=== PATIENT | male | born 1980 ===

== ENCOUNTER 2017-09-19 07:30 | Inpatient (IN) | payer OTHER ==
[~2017-09-19] VITALS: Ht 167.6 cm; Wt 83.9 kg
[2017-12-03] MEDS ORDERED: NKM (13:53)
[2017-12-04] VITALS (20 sets, daily range): BP systolic 11–125; BP diastolic 40–76
[2017-12-04] MEDS ORDERED: Zemuron 50mg/5ml Inj IV ONE (06:26)
[2017-12-04] MEDS ORDERED: LR 1000ml 1,000 ML IVLG SCH (06:47)
--- NOTE | 2017-12-04 06:49 | Anethesia Preoperative Eval ---
Anesthesia Pre-op PMH/ROS General Date of Evaluation: Dec 04, 2017 Time of Evaluation: 07:26 Anesthesiologist: Camila ASA Score: ASA 2 Mallampati Score Class I : Soft palate, uvula, fauces, pillars visible Class II: Soft palate, uvula, fauces visible Class III: Soft palate, base of uvula visible Class IV: Only hard plate visible Mallampati Classification: Class I Surgeon: Alexandru Diagnosis: Back Pain Surgical Procedure: PLF L5-S1 Anesthesia History: none Social History: current smoker Family History: no anesthesia problems Allergies: Coded Allergies: No Known Allergies (Unverified , 12/03/17) Medications: see eMAR Past Medical History Other: obesity - BMI 31 PSxH Narrative: R Pelvic, L Shoulder SX Anesthesia Pre-op Phys. Exam Physician Exam Last Vital Signs Date Time Temp Pulse Resp B/P (MAP) Pulse Ox O2 Delivery O2 Flow Rate FiO2 12/04/17 05:45 Room Air 12/04/17 05:42 97.8 62 18 120/76 (91) 97 97.8 Constitutional: NAD Neurologic: CN 2-12 intact Cardiovascular: RRR Respiratory: CTA Gastrointestinal: S/NT/ND Airway Exam Mallampati Score: Class I MO: full ROM: full Teeth: intact Anesthesia Pre-op A/P Risk Assessment & Plan Assessment: ASA 2 Plan: GA, SED, GlideScope Status Change Before Surgery: No Pre-Antibiotics Dru Grams Ancef IV Given Within 1 Hr of Incision: Yes Time Given: 07:46 Gonzalo Jensen MD Dec 04, 2017 06:49
[2017-12-04] MEDS ORDERED: Lidocaine 1% Plain 30 ml INJ ONE ×4 (06:57→11:03)
[2017-12-04] MEDS ORDERED: Dexamethasone 4mg/ml vial ONE (06:59)
[2017-12-04] MEDS ORDERED: Lidocaine 1% MPF 10mg/ml 5ml ONE (06:59)
[2017-12-04] MEDS ORDERED: Sodium Chloride 10ml vial INJ ONE (06:59)
[2017-12-04] MEDS ORDERED: fentaNYL 100 mcg/2 mL IV ONE ×5 (06:59→11:59)
[2017-12-04] MEDS ORDERED: Labetalol 5mg/ml 20ml vial IV PRN (07:00)
[2017-12-04] MEDS ORDERED: Ketorolac 30mg Inj IV PRN ×2 (07:00)
[2017-12-04] MEDS ORDERED: Meperidine 50mg/ml Inj(FOR RIGORS ONLY) IVP PRN (07:00)
[2017-12-04] MEDS ORDERED: Midazolam 2mg/2ml Inj IVP PRN (07:00)
[2017-12-04] MEDS ORDERED: Acetaminophen (Non formulary) 100 ML IV ONE (07:00)
[2017-12-04] MEDS ORDERED: Atropine Sulfate 0.4mg/ml inj IVP PRN (07:00)
[2017-12-04] MEDS ORDERED: HYDROcodone/Acetamin 7.5/325 tab ORAL PRN (07:00)
[2017-12-04] MEDS ORDERED: Metoclopramide 10mg/2ml Inj IVP PRN (07:00)
[2017-12-04] MEDS ORDERED: Norco 5mg/325mg tab ORAL PRN (07:00)
[2017-12-04] MEDS ORDERED: oxyCODONE HCL/Acetaminophen 5/325mg ORAL PRN (07:00)
[2017-12-04] MEDS ORDERED: DiphenhydrAMINE 50mg/ml Inj IVP PRN (07:00)
[2017-12-04] MEDS ORDERED: fentaNYL 100 mcg/2 mL IV PRN (07:00)
[2017-12-04] MEDS ORDERED: Hydromorphone 0.5mg/0.5ml inj IVP PRN (07:00)
[2017-12-04] MEDS ORDERED: LORazepam Inj 2mg/ml 1ml IV PRN (07:00)
[2017-12-04] MEDS ORDERED: EPINEPHrine 1mg/1ml Amp ONE (07:07)
[2017-12-04] MEDS ORDERED: Bupivacaine 0.5% Inj 30 ml vial INJ ONE ×2 (07:08→07:29)
[2017-12-04] MEDS ORDERED: Gelfoam Size TOPIC ONE (07:08)
[2017-12-04] MEDS ORDERED: Thrombin 5000 units TOPIC ONE ×2 (07:08→07:09)
[2017-12-04] MEDS ORDERED: Gelfoam Absorbable 1gm powder pkt TOPIC ONE (07:08)
[2017-12-04] MEDS ORDERED: Bacitracin 50000 Units Vial ONE ×2 (07:08→10:17)
[2017-12-04] MEDS ORDERED: Thrombin 5000 units spray kit TOPIC ONE (07:09)
--- NOTE | 2017-12-04 07:13 | Immediate Post-Op Evaluation ---
Immediate Post-Op Evalulation Immediate Post-Op Evalulation Procedure: PLIF L5-S1 Date of Evaluation: Dec 04, 2017 IV Fluids: 1000 LR Blood Products: 0 Estimated Blood Loss: 75 Urinary Output: 300 Blood Pressure Systolic: 108 Blood Pressure Diastolic: 60 Pulse Rate: 90 Respiratory Rate: 16 O2 Sat by Pulse Oximetry: 99 Temperature (Fahrenheit): 98.4 Pain Score (1-10): 3 Nausea: No Vomiting: No Complications 0 Patient Status: awake, reacts, patent, extubated, none Hydration Status: adequate Dru Grams Ancef IV Given Within 1 Hr of Incision: Yes Time Given: 07:46 Gonzalo Jensen MD Dec 04, 2017 07:13
[2017-12-04] MEDS ORDERED: Sterile Water Irrig 1000ml IRRIG ONE (07:30)
[2017-12-04] MEDS ORDERED: Propofol 1,000mg/ 100ml btl IV ONE (07:30)
[2017-12-04] MEDS ORDERED: NS Irrig 1000ml ONE (07:30)
[2017-12-04] MEDS ORDERED: LR 1000ml ONE (07:30)
--- NOTE | 2017-12-04 07:33 | Pre-Procedure Note/Attestation ---
Pre-Procedure Note/Attestation Complete Prior to Procedure Planned Procedure: bilateral Procedure Narrative: L5-S1 PLIF with PIF and ICBG Indications for Procedure Pre-Operative Diagnosis: L5-S1 stenosis Attestation I attest that I discussed the nature of the procedure; its benefits; risks and complications; and alternatives (and the risks and benefits of such alternatives ), prior to the procedure, with the patient (or the patient's legal sales donor recruitment representative). I attest that, if there was a reasonable possibility of needing a blood transfusion, the patient (or the patient's legal sales donor recruitment representative) was given the [facility] standardized written summary, pursuant to the Valente Mayuri Blood Safety Act ([place] Health and Safety Code # 1645, as amended). I attest that I re-evaluated the patient just prior to the surgery and that there has been no change in the patient's H&P, except as documented below: Gilmer Horvath Dec 04, 2017 07:33
[2017-12-04] MEDS ORDERED: Vancomycin 1gm inj IVPB ONE (11:42)
[2017-12-04] MEDS ORDERED: Naloxone 0.4mg/ml Inj ONE (11:47)
--- NOTE | 2017-12-04 12:08 | Brief Operative Note ---
Immediate Post Operative Note Operative Note Chief Complaint: Back pain with radiculopathy Pre-op Diagnosis: L5-S1 stenosis Procedure: L5-S1 PLIF with PIF Post-op Diagnosis: same as pre-op Surgeon: Dr Horvath Underground Drill Operator: None Anesthesiologist: Dr Jensen Anesthesia: general Specimen: yes - L5-S1 disc Complications: none Condition: stable Fluids: NA Estimated Blood Loss: volume - 75 ml Drains: none Implant(s) used?: Yes - L5-S1 Nexxt Spine Gilmer Horvath Dec 04, 2017 12:08
[2017-12-04] MEDS ORDERED: Milk of Magnesia 30ml Ud ORAL PRN (12:15)
--- NOTE | 2017-12-04 14:35 | Diagnostic Imaging Report ---
INDICATION: Pain, intraoperative TECHNIQUE: Intraoperative imaging Fluoroscopy time: 12.3 seconds Total dose: 0.91578 mGym2 Total number of images: 3 COMPARISON: None FINDINGS: Intraoperative images demonstrate surgical tool projected posterior to the lumbosacral junction. There does appear to be transitional anatomy. Subsequent images document posterior fusion at the lumbosacral junction with placement of disc spacers IMPRESSION: Intraoperative imaging, as described
[2017-12-04] MEDS: ceFAZolin sod 1 GM in D5W 55 ML IV SCH ×2 (16:48→23:15)
[2017-12-04] MEDS: Hydromorphone 0.5mg/0.5ml inj SUBQ PRN ×2 (16:48→23:15)
--- NOTE | 2017-12-04 17:15 | Operative Note - Dictated ---
DATE OF OPERATION: 12/04/2017 NEUROSURGERY OPERATIVE REPORT INDICATION FOR SURGERY: The patient is a pleasant 37-year-old gentleman who presented with signs and symptoms of intractable back pain and left greater than right lumbar radiculopathy. He had attempted and failed conservative measures of greater than 6 months. Therefore, surgical and nonsurgical options were discussed and he requested surgical intervention. RISKS AND BENEFITS DISCUSSION: The patient was apprised of all objectives, benefits, risks and potential complications of the procedure including, but not limited to worsening of current status, possible need for further procedures, risk of infection, headache, CSF leak, possible spinal cord injury resulting in paralysis, injury to major blood vessels causing hemorrhage, stroke, loss of language function, coma and even . No assurance was given whether symptoms would improve following the procedure. Informed consent was obtained and secured in the chart after the patient voiced understanding of these risks and decided to proceed with the operation. PREOPERATIVE DIAGNOSES: 1. L5-S1 stenosis. 2. Left greater than right lumbar radiculopathy. 3. Back pain. POSTOPERATIVE DIAGNOSES: 1. L5-S1 stenosis. 2. Left greater than right lumbar radiculopathy. 3. Back pain. OPERATION PERFORMED: 1. L5-S1 bilateral arthrodesis, posterior interbody technique combined with posterolateral technique. 2. Application of interbody device bilaterally at L5-S1 using Nexxt spine instrumentation, two implants were used. 3. Posterior segmental instrumentation at L5-S1 using Nexxt spine instrumentation. 4. Lumbar decompressive laminectomy beyond what is required for interbody fusion at L5-S1. 5. Microscope. 6. Fluoroscope. 7. Neuromonitoring. 8. Paraspinal intramuscular injections including facet injections at L4-L5 bilaterally for postoperative pain control. 9. Autograft. SURGEON: Gilmer Horvath M.D. FULL STACK DEVELOPER: None. ANESTHESIA: GETA. ANESTHESIOLOGIST: Dr. Jensen. ESTIMATED BLOOD LOSS: Approximately 75 mL. FINDINGS: There was a severe collapse of disc space causing compression on the exiting and traversing L5-S1 nerve roots. SPECIMENS SENT: Were the L5-S1 disc removed. COMPLICATIONS: None. TECHNIQUE: The patient was transferred to the operating room. He was sedated and intubated by anesthesia team. Preoperative antibiotics were given. Eyes were taped shut after ointment was applied to prevent corneal abrasion. The patient was transferred to the operating table in the open Ian table in prone position. Dumont catheter had been inserted. Nori Hugger was placed over the lower body to maintain control of core body temperature. All pressure points were carefully padded. Neuromonitoring team placed the needles in appropriate position and baselines were obtained. C-arm was brought in and localization of the operative levels performed. The skin was prepped and draped in a sterile surgical fashion. Time-out was taken. A linear incision was performed with a scalpel blade and dissection was continued to fascial layer. The fascia was then opened and dissection was continued over the lamina and facet joints of L5-S1. The fluoroscope was used again to confirm the correct levels. Attention was first placed towards the left side. A complete facetectomy of the L5-S1 joint was performed. Laminectomy of L4-L5 was also performed, however, attention was placed to maintain the integrity of the interspinous process ligament. Once the ligamentum flavum was elevated, excellent decompression of the exiting and traversing nerve roots were confirmed. The microscope was brought in. The L5-S1 disk space was entered and complete diskectomy was carried out. Arthrodesis of the end-plates was performed and a titanium cage from Nexxt spine instrumentation filled with autograft was placed into the L5-S1 disk space from the left-sided approach. Afterwards, the same process was repeated for the right side where a complete facetectomy was performed and an interbody cage including extended decompression of the nerve roots, thecal sac and placement of interbody titanium cage at L5-S1 level on the right side. Once it was completed, x-ray was performed confirming good placement of the cages. Afterwards using cortical screw trajectory, pedicle screws were placed into L5 bilaterally and using anatomical landmarks, pedicle screws were placed by a traditional approach. Pedicle screws were placed into the S1 as well. Neuromonitoring signals had reported improvement in the L5-S1 nerve root signals. At this point, the instrumentation screws were stimulated and it was noticed that the left L5 signals were low. Therefore, this screw was taken out and examination revealed a small inferior pedicle breach. Therefore, a new starting hole was started slightly cephalad and there was good cortical wall confirmed and the screw was placed in the new position in the left L5 pedicle. Once this was done, the area was copiously irrigated with antibiotic solution. Stimulation of the screw confirmed improvement and within the safety margin for the signals. Afterwards titanium baudilio was placed and final tightening was performed over the screw tulips. X-rays were performed, which demonstrated good position of all instrumentation and purposefully, the left L5 pedicle screw was left slightly proud in order to achieve a tricortical purchase due to repositioning in order to help with stability and the tip of the screw was slightly proud laterally through the L5 vertebral body. This was confirmed via AP x-ray that this screw was not in the L4-L5 disk space. Once this was confirmed, the area was again copiously irrigated with antibiotic solution. Excellent hemostasis maintained throughout the entire case. The fascial layer was reapproximated in a watertight fashion followed by paraspinal injection with Marcaine including bilateral facet joint injections into the L3-L4 level for postoperative pain control. Vancomycin powder was applied and subcutaneous layers were approximated sutures. Skin glue was applied as a final layer. All needle count, sponge count, and instrument counts were correct at the end of the case x2. As mentioned above, the neuromonitoring signals improved by the end of the case. The patient was then transferred back to recovery in stable condition. The patient was examined after surgery recovery and was able to move all extremities without difficulty. Gilmer Horvath MD DR: HE JOB#: [id number] CC:
[2017-12-04] MEDS: Docusate 100mg cap ORAL SCH (18:56)
[2017-12-05] VITALS: BP 108/48
[2017-12-05 04:00] VITALS: BP 104/53
[2017-12-05] MEDS: ceFAZolin sod 1 GM in D5W 55 ML IV SCH (06:31)
[2017-12-05 08:00] VITALS: BP 110/73
[2017-12-05] MEDS: Hydromorphone 0.5mg/0.5ml inj SUBQ PRN ×2 (08:03→20:58)
[2017-12-05] MEDS: Docusate 100mg cap ORAL SCH ×2 (08:29→17:44)
[2017-12-05 12:00] VITALS: BP_SYST 101; BP_SYST 155; BP_DIAS 56; BP_DIAS 91
[2017-12-05] MEDS: Norco 5mg/325mg tab ORAL PRN ×2 (13:40→17:44)
--- NOTE | 2017-12-05 15:16 | 48 Hour Post Anesthesia Eval ---
Post Anesthesia Evaluation Procedure: PLIF L5-S1 Date of Evaluation: Dec 05, 2017 Time of Evaluation: 15:15 Blood Pressure Systolic: 116 0: 74 Pulse Rate: 68 Respiratory Rate: 22 Temperature (Fahrenheit): 97.6 O2 Sat by Pulse Oximetry: 98 Airway: patent Nausea: No Vomiting: No Pain Intensity: 3 Hydration Status: adequate Cardiopulmonary Status: stable Mental Status/LOC: patient returned to baseline Follow-up Care/Observations: n/a Post-Anesthesia Complications: none Follow-up care needed: N/A Myles Taylor MD Dec 05, 2017 15:16
[2017-12-05 16:00] VITALS: BP 123/62
[2017-12-05 20:00] VITALS: BP 101/55
[2017-12-06] VITALS: BP 102/58
[2017-12-06] MEDS: Hydromorphone 0.5mg/0.5ml inj SUBQ PRN ×3 (04:20→20:30)
[2017-12-06 08:00] VITALS: BP 117/71
[2017-12-06] MEDS: Norco 5mg/325mg tab ORAL PRN ×3 (09:06→23:56)
[2017-12-06] MEDS: Docusate 100mg cap ORAL SCH ×2 (09:06→17:42)
[2017-12-06 11:48] VITALS: BP 104/67
[2017-12-06] MEDS ORDERED: HYDROmorphone 1mg/ml Carpuject IVP SCH (13:15)
[2017-12-06] MEDS: Methocarbamol 750mg tab ORAL SCH ×3 (14:57→21:51)
[2017-12-06 16:00] VITALS: BP 115/58
[2017-12-06 20:00] VITALS: BP 94/56
[2017-12-07] VITALS: BP 130/74
[2017-12-07 04:00] VITALS: BP 96/56
[2017-12-07 08:00] VITALS: BP 113/68
[2017-12-07] MEDS: Norco 5mg/325mg tab ORAL PRN ×2 (08:26→12:49)
[2017-12-07] MEDS: Methocarbamol 750mg tab ORAL SCH ×2 (08:26→12:50)
[2017-12-07] MEDS: Docusate 100mg cap ORAL SCH (08:27)
[2017-12-07 12:00] VITALS: BP 124/78
[2017-12-07] MEDS ORDERED: NORCO 10-325 T1 EACH ORAL (12:24)
[2017-12-07] MEDS ORDERED: ROBAXIN500 MG PO (12:25)
--- NOTE | 2017-12-09 08:42 | Discharge Summary ---
Discharge Summary Hospital Course Date of Admission Dec 04, 2017 at 05:14 Date of Discharge Dec 07, 2017 at 13:50 Admitting Diagnosis back pain, lumbar stenosis with radiculopathy ( left greater than right) Reason for Hospitalization: elective surgery HPI Bahman Ridley is a 37 year old male who was admitted on Dec 04, 2017 at 05:14 for Lumbar Back Pain,With Radiculopathy. Patient was admitted for elective surgery Procedures s/p 12/04/[address] Horvath 1. L5-S1 bilateral arthrodesis, posterior interbody technique combined with posterolateral technique. 2. Application of interbody device bilaterally at L5-S1 using Nexxt spine instrumentation, two implants were used. 3. Posterior segmental instrumentation at L5-S1 using Nexxt spine instrumentation. 4. Lumbar decompressive laminectomy beyond what is required for interbody fusion at L5-S1. 5. Microscope. 6. Fluoroscope. 7. Neuromonitoring. 8. Paraspinal intramuscular injections including facet injections at L4-L5 bilaterally for postoperative pain control. 9. Autograft. Hospital Course s/p surgery course of recovery uneventful initially IV fluids status post perioperative antibiotics neurovascular status intact pain management addressed , and pain was controlled incision clean, dry and intact ; prior to discharge left open to air ; no signs of infection ambulate safely with physical therapy fall and spine precautions maintained SCD while in the bed IS while in the bed encouraged started on diet, able to tolerate voided freely bowel regimen instituted patient was stable for discharge discharge instruction provided patient follow up with surgeon as advised FINAL DIAGNOSES 1. L5-S1 LUMBAR stenosis. 2. Left greater than right lumbar radiculopathy. 3. Back pain. 4. s/p L5-S1 PLIF Discharge Medications Continued Medications: Hydrocodone Bit/Acetaminophen 10-325* ([place] 10-325*) 1 Each Tablet 1 TAB ORAL Q4H PRN for For Pain, #40 TAB 0 Refills (This prescription has been renewed) PRN PAIN Methocarbamol* (Robaxin*) 500 Mg Tablet 1000 MG PO Q6HR for muscle spasms, #120 TAB 0 Refills (This prescription has been renewed) Discharge Condition Upon Discharge: stable Discharge Disposition Patient was discharged to Home () Discharge Instructions Discharge Instructions Special Instructions I have been assigned to complete a D/C Summary on this account. I was not involved in the patient management Laura Foster REHABILITATION SPECIALIST Dec 09, 2017 08:42
== END 2017-12-07 13:50 | disposition home or self-care (01) | DRG 455 ==
LOC: SDSOVERFLO 12-04 05:14 → 3E 12-04 14:10
PROC: 3E0U3BZ Introduction of Anesthetic Agent into Joints, Percutaneous Approach (ICD-10-PCS; principal; 2017-12-04 07:30)
PROC: 0SG30AJ Fusion of Lumbosacral Joint with Interbody Fusion Device, Posterior Approach, Anterior Column, Open Approach (ICD-10-PCS; principal; 2017-12-04 07:30)
PROC: 0SG3071 Fusion of Lumbosacral Joint with Autologous Tissue Substitute, Posterior Approach, Posterior Column, Open Approach (ICD-10-PCS; principal; 2017-12-04 07:30)
PROC: 0ST40ZZ Resection of Lumbosacral Disc, Open Approach (ICD-10-PCS; principal; 2017-12-04 07:30)
PROC: 4A11X4G Monitoring of Peripheral Nervous Electrical Activity, Intraoperative, External Approach (ICD-10-PCS; principal; 2017-12-04 07:30)
DX: M48.07 Spinal stenosis, lumbosacral region (principal); M54.17 Radiculopathy, lumbosacral region
CPT/HCPCS: 36415; 72020; 76001; 86850; 86900; 86901; 87081; 94003; 94150; J2405